=== PATIENT | female | born 1970 | race Hispanic/Latino ===

== ENCOUNTER 2019-05-26 07:09 | Observation (INO) | payer BC ==
[2019-05-24 09:45] LABS: Basophils % (Auto) 0.8 % (0.0-1.8); Eosinophils # (Auto) 0.2 K/mm3 (0.0-0.4); Eosinophils % (Auto) 3.6 % (0.0-4.3); Hematocrit 40.2 % (30.3-42.9); Hemoglobin 13.7 gm/dl (10.1-14.3); Lymphocytes % (Auto) 16.7 % (13.4-35.0); Mean Corpuscular HGB Conc 34 % (30-34); Mean Corpuscular Volume 93 fl (79-97); Monocytes # (Auto) 0.3 K/mm3 (0.0-0.8); Monocytes % (Auto) 5.5 % (0.0-7.3); Platelet Count 349 K/mm3 (140-440); Red Blood Count 4.31 M/mm3 (3.65-5.03); Red Cell Distribution Width 13.2 % (13.2-15.2)
--- NOTE | 2019-05-24 09:48 | Anesthesia Consultation ---
Anesthesia Consult and Med Hx Date of service: 05/24/19 - Airway Anesthetic Teeth Evaluation: Good ROM Head & Neck: Adequate Mental/Hyoid Distance: Adequate Mallampati Class: Class II Intubation Access Assessment: Good - Pulmonary Exam CTA: Yes - Cardiac Exam Cardiac Exam: RRR - Pre-Operative Health Status ASA Pre-Surgery Classification: ASA2 Proposed Anesthetic Plan: General Nerve Block: TAP Block - Pulmonary Hx Smoking: Yes (former smoker) - Cardiovascular System Hx Hypertension: Yes (x 1 year) - Central Nervous System Hx Back Pain: Yes Hx Psychiatric Problems: No - Other Systems Hx Alcohol Use: Yes (Beer or wine 2-3/day) Hx Cancer: No
--- NOTE | 2019-05-26 07:04 | History and Physical Report ---
History of Present Illness Date of examination: 05/26/19 Chief complaint: Something is falling out of my vagina History of present illness: Pt is a 49 year old who presented wi Past History Past Medical History: No medical history Past Surgical History: No surgical history Social history: Medications and Allergies Allergies Allergy/AdvReac Type Severity Reaction Status Date / Time No Known Allergies Allergy Unverified 05/19/19 10:38 Home Medications Medication Instructions Recorded Confirmed Last Taken Type Cholecalciferol (Vitamin D3) 1 cap PO DAILY 05/19/19 05/26/19 05/25/19 09:00 History [Vitamin D3 2,000 UNIT CAP] Metoprolol [Lopressor TAB] 50 mg PO BID 05/19/19 05/26/19 05/25/19 20:30 History Active Meds: Active Medications Lactated Ringer's (Lactated Ringers) 1,000 mls @ 100 mls/hr IV DIRECT FREDI Cefazolin Sodium (Ancef/Sterile Water 2 Gm/20 Ml) 2 gm in 20 mls @ 80 mls/hr IV PREOP NR; Protocol Review of Systems All systems: negative - Genitourinary Genitourinary: pelvic pain Menstruation: period heavy, menses 8 or > days Exam Vital Signs Temp Pulse Resp BP Pulse Ox 97.2 F L 70 18 144/79 99 05/24/19 09:20 05/24/19 09:20 05/24/19 09:20 05/24/19 09:20 05/24/19 09:20 - General physical appearance Positive: well developed, well nourished, no distress - Neck Positive: no masses, no bruits, trachea midline, no venous distension - Respiratory Positive: normal expansion, normal respiratory effort, clear to auscultation - Cardiovascular Rhythm: regular Heart Sounds: Present: S1 & S2. Absent: rub, click - Extremities Extremities: no ischemia, pulses symmetrical, No edema - Breasts Breasts: normal, no mass, no skin changes - Abdomen Abdomen: Present: soft, bowel sounds normal. Absent: tender, distended Hernia: none - Genitourinary Female Genitourinary: normal (of a 4cm fibroid) Results - Labs 05/24/19 09:20 Assessment and Plan 49 year old female with prolapsing fibroid who is requesting definitive therapy for issue. consents signed for [facility]. Pt agrees with plan.
[~2019-05-26 07:09] MED LIST: GABAPENTIN 300 MG CAP PO NR; LACTATED RINGERS 1,000 ML IV SCH; MIDAZOLAM 2 MG/2 ML INJ IV NR; fentaNYL 100 MCG/2 ML INJ IV NR
--- NOTE | 2019-05-26 07:17 | Anesthesia Day of Surgery ---
Anesthesia Day of Surgery - Day of Surgery Patient Examined: Yes Patient H&P Reviewed: Yes Patient is NPO: Yes
[2019-05-26] MEDS ORDERED: GLYCOPYRROLATE 0.4 MG/2 ML INJ ONE (07:36)
[2019-05-26] MEDS ORDERED: PHENYLEPHRINE/NS 1,000 MCG/10 ML SYRINGE (OR USE) IV ONE (07:36)
[2019-05-26] MEDS ORDERED: NEOSTIGMINE 10MG/10 ML INJ MDV ONE (07:36)
[2019-05-26] MEDS ORDERED: fentaNYL 250 MCG/5 ML INJ ONE (07:36)
[2019-05-26] MEDS ORDERED: ONDANSETRON 4 MG/2 ML INJ ONE (07:36)
[2019-05-26] MEDS ORDERED: LIDOCAINE MPF (2%) 20 MG/1 ML VIAL 5 ML ONE (07:36)
[2019-05-26] MEDS ORDERED: SUCCINYLCHOLINE CHLORIDE 200 MG/10 ML INJ MDV ONE (07:36)
[2019-05-26] MEDS ORDERED: dexAMETHasone 20 MG/5 ML VIAL ONE (07:36)
[2019-05-26] MEDS ORDERED: PROPOFOL 200 MG/20 ML VIAL IV ONE (07:36)
[2019-05-26] MEDS ORDERED: ROCURONIUM 50 MG/5 ML INJ IV ONE (07:36)
[2019-05-26] MEDS ORDERED: BUPIVACAINE/PF (0.25%) 2.5 MG/ML 10 ML VIAL INFILTRATI ONE ×2 (07:42→10:45)
[2019-05-26] MEDS ORDERED: ceFAZolin/Water 2 GM/20 ML 2 GM/20 ML SYRINGE IV NR (08:00)
[2019-05-26] MEDS ORDERED: fentaNYL 100 MCG/2 ML INJ ONE (09:39)
[2019-05-26] MEDS ORDERED: SODIUM CHLORIDE 0.9% IRR 1,500 ML BOTTLE IR ONE (10:45)
--- NOTE | 2019-05-26 12:21 | Post Operative Note ---
Pre-op diagnosis: Prolapsing Fibroid Post-op diagnosis: same Findings: 3cm fibroid prolapsing through cervical os Procedure: Total Laparoscopic Hysterectomy Anesthesia: GETA Surgeon: ARIANA AGUILAR Business Applications Specialist: MARC ADKINS Estimated blood loss: other (200cc) Pathology: list Specimen disposition: to lab Condition: stable Disposition: PACU
[2019-05-26 13:43] LABS: Hematocrit 37.8 % (30.3-42.9); Hemoglobin 12.7 gm/dl (10.1-14.3); Mean Corpuscular HGB Conc 34 % (30-34); Mean Corpuscular Volume 95 fl (79-97); Platelet Count 328 K/mm3 (140-440); Red Cell Distribution Width 13.4 % (13.2-15.2)
[2019-05-26 14:54] LABS: Band Neutrophils # (Manual) 1.4 K/mm3; Basophils % (Manual) 0 % (0.0-1.8); Eosinophils % (Manual) 0 % (0.0-4.3); Monocytes % (Manual) 0 % (0.0-7.3); Total Cells Counted 100
[2019-05-26 14:55] LABS: Platelet Estimate Consistent w Auto; RBC Morphology Normal
[2019-05-26] MEDS ORDERED: MORPHINE 4 MG/1 ML INJ IV PRN (14:58)
[2019-05-26] MEDS ORDERED: PROMETHAZINE 25 MG RECT SUPP PR PRN (14:58)
[2019-05-26] MEDS ORDERED: MAGNESIUM HYDROXIDE (MOM) ORAL LIQD UDC PO PRN (14:58)
[2019-05-26] MEDS ORDERED: oxyCODONE /ACETAMINOPHEN 5-325MG TAB PO PRN (14:58)
[2019-05-26] MEDS: D5W/LACTATED RINGERS 1,000 ML IV SCH ×2 (15:08→23:47)
[2019-05-26] MEDS: KETOROLAC 30 MG/1 ML INJ IV SCH ×2 (15:08→23:47)
--- NOTE | 2019-05-26 15:52 | Post Anesthesia Evaluation ---
- Post Anesthesia Evaluation Patient Participated: Yes Airway Patent: Yes Stable Respiratory Function: Yes Nausea/Vomiting: No Temp > 96.8F: Yes Pain Manageable: Yes Adequeate Hydration: Yes Anesthesia Complications: No Block Receding Appropriately: Not Applicable Patient on Ventilator: No
[2019-05-26] MEDS: DOCUSATE SODIUM 100 MG CAP PO SCH (23:48)
[2019-05-27 04:43] LABS: Hematocrit 28.3 % (30.3-42.9); Hemoglobin 9.5 gm/dl (10.1-14.3)
[2019-05-27] MEDS: KETOROLAC 30 MG/1 ML INJ IV SCH ×2 (05:40→11:56)
[2019-05-27] MEDS: DOCUSATE SODIUM 100 MG CAP PO SCH (10:05)
--- NOTE | 2019-05-27 10:47 | Progress Note ---
Assessment and Plan POD 1 s/p [facility]H. pt feels great. Plan for discharge on today. Subjective - Subjective Date of service: 05/27/19 Interval history: Pt is a 49 year old who presented wi Patient reports: appetite normal, voiding normally, pain well controlled, flatus, ambulating normally Objective - Vital Signs Latest vital signs: Vital Signs Temp Pulse Resp BP BP Pulse Ox 05/27/19 09:10 98.2 F 84 20 140/77 05/27/19 04:32 98.5 F 81 20 125/72 98 05/26/19 23:49 98.2 F 79 20 109/62 97 05/26/19 20:58 98.2 F 80 20 113/65 97 05/26/19 16:29 98.6 F 84 16 126/64 98 05/26/19 12:40 98.7 F 67 17 151/77 05/26/19 12:30 98.3 F 65 12 118/71 100 05/26/19 12:15 67 12 115/70 100 05/26/19 12:00 61 15 106/51 100 05/26/19 11:45 59 L 17 106/55 100 05/26/19 11:30 60 14 96/50 100 05/26/19 11:15 54 L 12 96/51 100 05/26/19 11:10 52 L 12 102/56 100 05/26/19 11:05 58 L 12 92/57 100 05/26/19 11:00 97.3 F L 64 12 122/58 99 Intake and Output 05/26/19 05/27/19 05/27/19 22:59 06:59 14:59 Intake Total 1360 120 Output Total 600 1400 Balance -600 -40 120 Intake: IV 1000 D5lr 1,000 ml @ 125 mls/ 1000 hr IV DIRECT FREDI Rx#: [id number] Oral 360 120 Output: Urine 600 1400 Indwelling Catheter 600 1400 Other: Total, Intake Amount 120 120 Total, Output Amount 600 600 Voiding Method Indwelling Catheter # Voids Void 2 - Exam Breasts: Present: deferred Cardiovascular: Present: Regular rate, Normal S1, Normal S2 Lungs: Present: Clear to auscultation, Normal air movement Abdomen: Present: normal appearance, soft Extremities: Present: normal - Labs Labs: Abnormal lab results 10/09/19 10/10/19 Range/Units 13:19 03:29 WBC 11.8 H (4.5-11.0) K/mm3 Hgb 9.5 L D (10.1-14.3) gm/dl Hct 28.3 L D (30.3-42.9) % Seg Neuts % (Manual) 87.0 H (40.0-70.0) % Lymphocytes % (Manual) 1.0 L (13.4-35.0) % Seg Neutrophils # Man 10.3 H (1.8-7.7) K/mm3 Lymphocytes # (Manual) 0.1 L (1.2-5.4) K/mm3
--- NOTE | 2019-05-27 10:49 | Discharge Summary ---
Providers - Providers Date of Admission: 05/26/19 12:14 Date of discharge: 05/27/19 Attending physician: ARIANA AGUILAR Primary care physician: CANDI CANTU MD Hospitalization Reason for admission: other (menorrhagia, prolapsing fibroid) Procedure details: see op report Discharge diagnosis: other Hospital course: unremarkable Condition at discharge: Good Disposition: DC-01 TO HOME OR SELFCARE Plan - Discharge Medications Prescriptions: Ibuprofen [Motrin] 800 mg PO Q8HR PRN #40 tablet PRN Reason: Pain, Moderate (4-6) oxyCODONE /ACETAMINOPHEN [Percocet 5/325] 2 tab PO Q6HR PRN #30 tablet PRN Reason: Pain - Provider Discharge Summary Activity: routine, no sex for 6 weeks, no heavy lifting 4 weeks Diet: routine Instructions: routine Additional instructions: [] Smoking cessation referral if applicable(refer to patient education folder for contact #) [] Refer to [facility] Book[facility] Call your doctor immediately for: * Fever > 100.5 * Heavy vaginal bleeding ( >1 pad per hour) * Severe persistent headache * Shortness of breath * Reddened, hot, painful area to leg or breast * Drainage or odor from incision. * Keep incision clean and dry at all times and follow doctor's instructions regarding bathing/showering - Follow up plan Follow up: ARIANA AGUILAR MD [Staff Physician] - 14 Days
[2019-05-27 13:04] VITALS: BP 135/80
--- NOTE | 2019-06-02 12:49 | Operative Report ---
Operative Report Operative Report: Preoperative diagnosis: Menorrhagia with prolapsed cervical fibroid Postoperative diagnosis: Same Procedure:Total laparoscopic hysterectomy Surgeon: Vilma Chakraborty Weaver Apprentice: Monica Ching M.D. Anesthesia: General EBL: 200 mL IV fluids: 1100 mL Urine output: 300 mL Findings: Normal uterus tubes and normal ovaries with a 4cm prolapsing fibroid through the cervical os Specimens: Uterus, fallopian tubes and cervix Complications: None The patient was properly identified as herself. She was then taken to the OR with IV running and in place. She was given general anesthesia without difficulty. She was placed in a dorsal lithotomy position. She was then prepped and draped in normal sterile fashion. Attention was turned to the patient's vagina. A Williamson catheter was inserted into her bladder. The speculum was then placed the patient's vagina. The cervix was visualized and grasped with tenaculum. The large Vesicare retractor was placed into the patient's uterus and the bulb inflated. The surgeon's gloves were changed and attention turned to the patient's abdomen. A small incision was made in the patient's umbilicus incision a 5 mm trocar was placed. The laparoscope confirmed intra- abdominal placement. The abdomen was insufflated with CO2 gas to approximately 25 mmHg. 2 additional incisions were made in the right and left lower quadrants. Through both of these incisions 5 mm trochars were placed. Attention was then turned to the round ligament. Each was cauterized then transected. Folllowing this, each utero-ovarian ligament was then cauterized and transected. The bladder flap was then created. Following this the uterine arteries were skeletonized then cauterized and transected bilaterally. At this point the colpotomy incision was created circumferentially around the cup until the entire cup was exposed. AT this point, attention was turned to the vagina and the uterus along with the cervix and the cup was removed vaginally. Once fully delivered the cuff was closed in a running locked fashion with 2.0 vicryl. A second look was made at the pedicles from above and it was noted for excellent hemostasis. At this point the abdomen was deflated. All instruments were then removed from the abdomen. The incisions were then closed with 4-0 Monocryl. The incisions were also injected with quarter percent Marcaine. The patient tolerated the procedure well she was then awakened and taken recovery in stable condition. Sponge needle and instrument counts were correct 2.
== END 2019-05-27 12:30 | disposition home or self-care (01) ==
LOC: OR 07:09 → OB 12:14
PROVIDERS: ADMIT Obstetrics & Gynecology; ATTEND Obstetrics & Gynecology
DX: D25.9 Leiomyoma of uterus, unspecified (principal)
CPT/HCPCS: 36415; 58550; 84703; 85007; 85014; 85018; 85025; 86850; 86900; 86901; 88307; 96374; 96376; G0378; J0330; J0690; J1100; J1885; J2370; J2405; J2704; J2710; J3010; J7120; J7121